=== PATIENT | male | born 1965 | race Caucasian/White ===

== ENCOUNTER 2017-12-09 13:34 | Emergency (ER) | payer BC ==
[2017-12-09] MEDS ORDERED: Oxymetazoline 0.05% NASAL SPR* 15 ML BTL BOTH NARES ONE (14:27)
--- NOTE | 2017-12-09 15:40 | ED ---
Adult Trauma - HPI Summary HPI Summary: Patient here with facial wound after injury playing softball this morning at 9: 30. Reports a ball from a nearby field pop fly and as he turned around said ball hit him in the face. He was wearing glasses at the time. He denies loss of consciousness however has bleeding from lacerations in his nasal bridge, swelling and bruising underneath his eyes, central maxillary pain and the reason he is here is his prolonged epistaxis. He's tried applying pressure and has a gauze in the right side. After using clamp, his bleeding seems to have stopped. Denies blood in his ears or throat. No muffled hearing or otorrhea. Denies headache, photophobia, ocular pain, tinnitus, difficulty swallowing or breathing, numbness, tingling, weakness. Reports he would've just gone home however he can get his nose stopped bleeding so he came in to be evaluated. Denies anticoagulant medications however he does have high blood pressure and diabetes. Otherwise immunizations are up-to-date. Admits he has broken his nose in the past but has never bled this long. - History of Current Complaint Chief Complaint: EDEpistaxis Stated Complaint: POSSIBLE BROKEN NOSE Time Seen by Provider: 12/09/17 14:19 Hx Obtained From: Patient Pain Intensity: 1 - Allergy/Home Medications Allergies/Adverse Reactions: Allergies Allergy/AdvReac Type Severity Reaction Status Date / Time clarithromycin [From Biaxin] Allergy Swelling Verified 12/09/17 13:39 Home Medications: Home Medications Aspirin EC TAB* [Ecotrin EC Low Dose 81 MG*] 81 mg PO DAILY 12/09/17 [History Confirmed 12/09/17] Cetirizine* [ZyrTEC 10 MG TAB*] 10 mg PO DAILY 12/09/17 [History Confirmed 12/09] Flunisolide NASAL (NF) [Nasalide NASAL (NF)] 1 spray BOTH NARES DAILY 12/09/17 [ History Confirmed 12/09/17] Losartan TAB* [Cozaar TAB*] 50 mg PO DAILY 12/09/17 [History Confirmed 12/09/17] Metformin ER (NF) 1,000 mg PO BID 12/09/17 [History Confirmed 12/09/17] Omeprazole CAP* [Prilosec CAP* 20 MG] 40 mg PO DAILY 12/09/17 [History Confirmed 12/09/17] Rosuvastatin (NF) [Crestor (NF)] 2.5 mg PO DAILY 12/09/17 [History Confirmed 04/20] PMH/Surg Hx/FS Hx/Imm Hx Previously Healthy: Yes Endocrine/Hematology History: Reports: Hx Diabetes - 2grams metformin daily - recently worse from 6%-7% HGA1C Denies: Hx Anticoagulant Therapy, Hx Blood Disorders, Hx Unexplained Bleeding , Hx Coagulopothy Cardiovascular History: Reports: Hx Hypertension Sensory History: Reports: Hx Contacts or Glasses Opthamlomology History: Reports: Hx Contacts or Glasses - Immunization History Immunizations Up to Date: Yes Infectious Disease History: No Infectious Disease History: Denies: Hx of Known/Suspected MRSA, Traveled Outside the [place] in Last 30 Days - Social History Occupation: Retired - [employer] Lives: With Family Alcohol Use: Rare Hx Substance Use: No Substance Use Type: Reports: None Hx Tobacco Use: No Smoking Status (MU): Never Smoked Tobacco Review of Systems Constitutional: Negative Negative: Fatigue Eyes: Negative Negative: Photophobia, Blurred Vision, Diplopia Positive: Epistaxis. Negative: Dental Pain, Ear Ache Negative: Vomiting, Nausea Positive: no symptoms reported Musculoskeletal: Negative Negative: Arthralgia, Myalgia Skin: Other - nasal bridge lacs Neurological: Negative Psychological: Normal All Other Systems Reviewed And Are Negative: Yes Physical Exam Triage Information Reviewed: Yes Vital Signs On Initial Exam: Initial Vitals Temp Pulse Resp BP Pulse Ox 98.6 F 95 16 155/94 98 12/09/17 13:36 12/09/17 13:36 12/09/17 13:36 12/09/17 13:36 12/09/17 13:36 Vital Signs Reviewed: Yes Appearance: Positive: Well-Appearing, No Pain Distress, Well-Nourished Skin: Positive: Warm, Skin Color Reflects Adequate Perfusion - infraorbital edema w/ ecchymosis - nasal bridge w/ 3 lacerations - oozing blood - no obvious FB; nose deformed; blood soaked gauze in Rt nare Head/Face: Positive: Other - as above - otherwise, no traumatic findings (neg battlesign, neg step off) ENT: Positive: Hearing grossly normal, Pharynx normal - no blood in oropharynx, Nasal congestion, TMs normal - no hemotympanum. Negative: Trismus, Muffled voice, Dental tenderness Dental: Negative: Dental Fracture @ Neck: Positive: Supple, Nontender Respiratory/Lung Sounds: Positive: Clear to Auscultation, Breath Sounds Present. Negative: Stridor, Tracheal Deviation, Wheezes Cardiovascular: Positive: Normal, RRR Musculoskeletal: Positive: Normal, Strength/ROM Intact Neurological: Positive: Normal, Sensory/Motor Intact, Alert, Oriented to Person Place, Time, CN Intact II-III Psychiatric: Positive: Normal Procedures - Procedure Summary Procedure Summary: all wounds are hemodynamically stable - pt tolerated well - Laceration/Wound Repair 1 Location: face Description: Linear Anesthesia: Local, 1.0%, Lido Length, Depth and Shape: 0.5cm x 3mm Betadine Prep?: No - antiseptic spray Irrigated w/ Saline (ccs): 50 Laceration/Wound Explored: clean Closure: Single Layer Suture Type: Prolene - 6-0 Number of Sutures: 2 Layer Closure?: No Sterile Dressing Applied?: Yes - triple anbx ointment 2 Location: face Description: Linear Anesthesia: Local, 1.0%, Lido Length, Depth and Shape: 1.25cm x 3.5mm Betadine Prep?: No - antiseptic Irrigated w/ Saline (ccs): 50 Laceration/Wound Explored: clean Closure: Single Layer Suture Type: Prolene - 6-0 Number of Sutures: 4 Layer Closure?: No Sterile Dressing Applied?: Yes - triple anbx ointment 3 Location: face Description: Linear Anesthesia: Local, 1.0%, Lido Length, Depth and Shape: 0.75cm x 3mm Betadine Prep?: No - antiseptic Irrigated w/ Saline (ccs): 50 Laceration/Wound Explored: clean Closure: Single Layer Suture Type: Prolene - 6-0 Number of Sutures: 3 Layer Closure?: No Sterile Dressing Applied?: Yes - triple anbx ointment Diagnostics - Vital Signs Vital Signs Temp Pulse Resp BP Pulse Ox 12/09/17 13:36 98.6 F 95 16 155/94 98 - Laboratory Lab Statement: Any lab studies that have been ordered have been reviewed, and results considered in the medical decision making process. Adult Trauma Course/Dx - Course Course Of Treatment: Patient's CT of the maxillofacial structures reveals "facial bone fractures to include multiple, mildly displaced fractures of the anterior nasal bones bilaterally. There is also fracture through the far anterior inferior right maxillary antrum resulting in significant subcutaneous emphysema". Discussed w/ Dr. Ramos who reports pt may be d/c'd w/ f/u in 5 days if not actively bleeding. Pt will see his ENT in [place], Dr. Carney as he' s been there before- call placed to arrange f/u tomorrow - Dr. Carney will see the pt at 11:00am and agrees w/ plan. Prophylactic anbx initiated in ED and sent to pharmacy for outpt tx (NOTE: pt hsa diabetes). Lac's closed via suture repair. Discussed avoiding blowing his nose to prevent worsening of injury. If danger s/sx present, he will return to the ED. - Diagnoses Provider Diagnoses: Nasal bone fracture, Maxillary sinus fracture Discharge - Sign-Out/Discharge Documenting (check all that apply): Discharge/Admit/Transfer - Discharge Plan Condition: Stable Disposition: HOME Prescriptions: Cephalexin CAP* [Keflex CAP*] 500 mg PO QID #40 cap Patient Education Materials: Care For Your Stitches (ED), Facial Fracture (ED) , Facial Laceration (ED) Referrals: Mark Carney MD [Medical Doctor] - Additional Instructions: Keep wounds clean and covered with triple antibiotic ointment Do not blow nose You may use ice and acetaminophen 650mg every 6 hours as needed for pain Follow-up with Dr. Carney tomorrow at 11:00am in [place] *If you develop return of bleeding that will not stop ater 20 minutes of consistent soft nasal pinching, return to ED - Billing Disposition and Condition Condition: STABLE Disposition: HOME
--- NOTE | 2017-12-09 15:55 | RAD ---
INDICATION: Hit in the nose with a softball. COMPARISON: None TECHNIQUE: Axial source images were acquired from the vertex of the mandible through the orbits. Coronal and sagittal reconstructed images were acquired. FINDINGS: Bones: There are multiple fractures of the anterior nasal bones bilaterally. Several fractures are displaced. There is a fracture of the for anterior-inferior right maxillary antrum. This fracture likely accounts for the the significant subcutaneous emphysema Orbits: The globes and intraconal structures appear intact. The optic nerves are symmetric. Extraocular muscles appear normal. There is no intraconal inflammatory change or retrobulbar mass.. Paranasal sinuses: There is near fluid level right maxillary antrum. There are findings of chronic bilateral maxillary antral sinusitis as well. There is mild mucosal thickening involving the ethmoid air cells. There is blood in the nasal passageway. There is a gauze in place. Brain: There are no acute abnormalities of the visualized brain parenchyma. Soft tissues: There is extensive PT is emphysema about the nasal bones and about the superficial soft tissues at the level the maxillary antra bilaterally. Other: None The visualized soft tissue elements about the neck appear normal. IMPRESSION: FACIAL BONE FRACTURES TO INCLUDE MULTIPLE, MILDLY DISPLACED FRACTURES OF THE ANTERIOR NASAL BONES BILATERALLY. THERE IS ALSO A FRACTURE THROUGH THE FAR ANTERIOR -- INFERIOR RIGHT MAXILLARY ANTRUM RESULTING IN SIGNIFICANT SUBCUTANEOUS EMPHYSEMA
[2017-12-09] MEDS ORDERED: Lidocaine/Epineph/Tetraca SOL* (LET solution) 4 ML BTL TOPICAL ONE (16:20)
[2017-12-09] MEDS ORDERED: ceFAZolin 1 GM VIAL(*) 2 GM in NS 0.9% 100 ML* 100 ML IVPB ONE (16:21)
[2017-12-09] MEDS ORDERED: ceFAZolin 2 GM PREMIX (*) 2 GM/50 ML BAG IVPB ONE (17:00)
[2017-12-09 18:10] VITALS: BP 152/91
== END 2017-12-09 18:07 | disposition home or self-care (01) ==
LOC: ED 13:34
DX: S02.2XXA Fracture of nasal bones, initial encounter for closed fracture (principal); S02.401A Maxillary fracture, unspecified side, initial encounter for closed fracture; S01.81XA Laceration without foreign body of other part of head, initial encounter; R04.0 Epistaxis; W21.07XA Struck by softball, initial encounter; Y93.64 Activity, baseball; Y92.9 Unspecified place or not applicable
CPT/HCPCS: 12011; 70486; 99282; A9270-GY; J0690

== ENCOUNTER 2019-06-14 20:30 | Emergency (ER) | payer BC, OTHER ==
[2019-06-14 20:38] VITALS: BP 144/86
[2019-06-14] MEDS ORDERED: Tetan/Diph/Pertus SYR(Tdap)* 0.5 ML SYR(BOOSTRIX) use SYR contains LATEX IM ONE (22:12)
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
== END 2019-06-14 22:49 | disposition home or self-care (01) ==
LOC: ED 20:30
DX: S00.81XA Abrasion of other part of head, initial encounter (principal); M54.2 Cervicalgia; V49.40XA Driver injured in collision with unspecified motor vehicles in traffic accident, initial encounter; Y92.9 Unspecified place or not applicable; I10 Essential (primary) hypertension; M54.9 Dorsalgia, unspecified
CPT/HCPCS: 90471; 90715; 99282